=== PATIENT | male | born 1980 | race Caucasian/White ===

== ENCOUNTER 2017-07-03 16:08 | Emergency (ER) | payer OTHER ==
[~2017-07-03 16:08] MED LIST: CELE10TA9 PO; LORT5TAB PO
[2017-07-03 16:21] VITALS: BP 111/67; PULSE 139; RESP 20; TEMP 98.3; O2SAT 98
--- NOTE | 2017-07-03 16:52 | RADRPT ---
EXAM DATE/TIME: 07/03/2017 16:32 [facility] COMPARISON: SHOULDER RIGHT LTD (2VWS), December 14, 2010, 1:31. INDICATIONS : Right shoulder dislocations, injured throwing a ball MEDICAL HISTORY : Chronic right shoulder dislocations SURGICAL HISTORY : Right shoulder surgery ENCOUNTER: Initial ACUITY: 1 day PAIN SCORE: 9/10 LOCATION: Right Shoulder FINDINGS: Two view examination of the right shoulder demonstrates an anterior subcoracoid dislocation of the hu meral head. Multiple anchors are identified in the humeral head from previous surgery. Osseous structures otherwise appear intact without evidence of acute fracture. CONCLUSION: Anterior subcoracoid dislocation of the right glenohumeral joint without evidence of acute fracture. Sedrick Deal MD on July 03, 2017 at 16:49 Board Certified Radiologist. This report was verified electronically.
[2017-07-03] MEDS ORDERED: SODIUM CHLOR 0.9% 1000 ML INJ 1,000 ML IV SCH (17:08)
[2017-07-03] MEDS ORDERED: SODIUM CHLORIDE 0.9% FLUSH 10 ML FLUSH IV FLUSH PRN (17:15)
[2017-07-03] MEDS ORDERED: PROPOFOL 200 MG/20 ML AMP IV ONE (17:15)
--- NOTE | 2017-07-03 17:25 | PD ---
HPI Chief Complaint: Musculoskeletal Complaint Time Seen by Provider: 17:00 Travel History International Travel<30 days: No Contact w/Intl Traveler<30days: No Traveled to known affect area: No History of Present Illness HPI 37-year-old male arrives with pain in the right shoulder. He was [place] and dislocated it while throwing a dodgeball. Pain is constant and severe. He's had numerous prior dislocations. Onset sudden. No additional complaint. PFSH Past Medical History Anxiety: Yes Diminished Hearing: No Social History Alcohol Use: Yes ("occasionally") Tobacco Use: No Substance Use: No Allergies-Medications (Allergen,Severity, Reaction): Coded Allergies: No Known Allergies (Verified , 12/13/10) Reported Meds & Prescriptions Reported Meds & Active Scripts Active Reported Celexa (Citalopram Hydrobromide) 10 Mg Tab 10 Mg PO DAILY Review of Systems General / Constitutional: No: Fever Eyes: No: Diploplia HENT: No: Vertigo Cardiovascular: No: Palpitations Respiratory: No: Wheezing Physical Exam Narrative GENERAL: 37-year-old male well-nourished well-developed mild distress Vital Signs Date Time Temp Pulse Resp B/P (MAP) Pulse Ox O2 Delivery O2 Flow Rate FiO2 07/03/17 16:21 98.3 139 20 111/67 (82) 98 SKIN: Warm and dry. HEAD: Normocephalic. EYES: No scleral icterus. No injection or drainage. NECK: Supple, trachea midline. No JVD or lymphadenopathy. CARDIOVASCULAR: Tachycardia. Regular rhythm. RESPIRATORY: Breath sounds equal bilaterally. No accessory muscle use. GASTROINTESTINAL: Abdomen soft, non-tender, nondistended. MUSCULOSKELETAL: No cyanosis, or edema. Prominence of the glenoid fossa on the right side with limited range of motion due to the dislocation. 2+ radial artery pulse bilaterally. Hand shallot packer equal bilaterally. BACK: Nontender without obvious deformity. No CVA tenderness. Data Data Last Documented VS Vital Signs Date Time Temp Pulse Resp B/P (MAP) Pulse Ox O2 Delivery O2 Flow Rate FiO2 07/03/17 16:21 98.3 139 20 111/67 (82) 98 Orders Orders Shoulder, Limited(2vws) (07/03/17 ) Iv Access Insert/Monitor (07/03/17 17:08) Ecg Monitoring (07/03/17 17:08) Oximetry (07/03/17 17:08) NPO (07/03/17 17:08) Sodium Chlor 0.9% 1000 Ml Inj (Ns 1000 M (07/03/17 17:08) Sodium Chloride 0.9% Flush (Ns Flush) (07/03/17 17:15) Oxygen Administration (07/03/17 17:08) Propofol 200 Mg/20 Ml Inj (Diprivan 200 (07/03/17 17:15) Support Splint (07/03/17 17:09) Shoulder, Complete (>2vws) (07/03/17 ) Ed Discharge Order (07/03/17 17:50) MDM Medical Decision Making Medical Screen Exam Complete: Yes Emergency Medical Condition: Yes Medical Record Reviewed: Yes Differential Diagnosis dislocation, fracture, contusion Narrative Course Procedural sedation with successful reduction. Sling applied. Follow-up with orthopedics. Procedures Procedure Narrative After the risks and benefits were discussed the following procedure was performed: MODERATE SEDATION: The patient was placed on a statistical machine mechanic and pulse oximetry. An ambu bag and suction was immediately available at bedside. The patient was monitored by the nurse. Oxygen saturation , heart rate and blood pressure were monitored. Procedural sedation was acheived using propofol. The patient was observed until awake and alert. Procedural Sedation time in attendance was 15 minutes. Diagnosis Primary Impression: Shoulder dislocation, recurrent Qualified Codes: M24.411 - Recurrent dislocation, right shoulder Referrals: Francisco Saunders Jr., MD call for appointment Med/Other Pt SpecificInfo: No Change to Meds Disposition: 01 DISCHARGE HOME Terrence Rasheed MD Jul 03, 2017 17:25
[2017-07-03 17:53] VITALS: O2SAT 96
--- NOTE | 2017-07-03 18:00 | RADRPT ---
EXAM DATE/TIME: 07/03/2017 17:40 [facility] COMPARISON: SHOULDER RIGHT LTD (2VWS), July 03, 2017, 16:32. INDICATIONS : Post reduction right shoulder MEDICAL HISTORY : Chronic right shoulder dislocations SURGICAL HISTORY : Right shoulder surgery ENCOUNTER: Subsequent ACUITY: 1 day PAIN SCORE: 2/10 LOCATION: Right Shoulder FINDINGS: Two view examination of the right shoulder demonstrates satisfactory reduction of a dislocated right glenohumeral joint. The humeral head is now seen within the glenoid fossa. CONCLUSION: Satisfactory appearance of the right shoulder following closed reduction of anterior dislocation. Sedrick Deal MD on July 03, 2017 at 17:58 Board Certified Radiologist. This report was verified electronically.
== END 2017-07-03 19:01 | disposition home or self-care (01) ==
LOC: NEPD 16:08
DX: M24.411 Recurrent dislocation, right shoulder (principal); F41.9 Anxiety disorder, unspecified
CPT/HCPCS: 23650; 73030; 99152; 99284; J7030